=== PATIENT | male | born 1995 | race Caucasian/White ===

== ENCOUNTER → 2016-07-30 | Outpatient (CLI) | payer BC ==
[2013-03-24 22:51] VITALS: BP 138/96
--- NOTE | 2016-07-30 11:20 | US ---
HISTORY: Lymphadenopathy Study: Ultrasound posterior neck Comparison: None Technique: Multiple grayscale sonographic images were obtained. Findings: Sonographic evaluation was focused to a palpable nodule right posterior neck. Images demonstrated a 6 millimeter x 3 millimeter x 6 millimeter architecturally normal lymph node accounting for the blake ent's palpable nodule. IMPRESSION: 6 millimeter x 3 millimeter x 6 millimeter architecturally normal right posterior neck lymph node ac counting for the patient's palpable abnormality Reported By:
== END ==
LOC: RAD 08:30
PROVIDERS: ATTEND Nurse Practitioner Family
DX: R59.0 Localized enlarged lymph nodes (principal)
CPT/HCPCS: 76536